=== PATIENT | female | born 1975 | race Caucasian/White ===

== ENCOUNTER → 2024-01-17 | Outpatient (CLI) | payer BC, SELFPAY ==
--- NOTE | 2024-01-17 13:30 | XR_ITS ---
Examination: Breast ultrasound, unilateral, left complete Date and time of exam: January 17, 2024 1347 hours INDICATIONS: Mammogram 11/07/2023 12 mm focal asymmetry 12:00 position left breast Technique: Real-time alejandro scale ultrasonographic imaging performed left breast including all 4 quadrants as well as nipple retroareolar and axillary region. Findings: 1:00 oval mass which may represent glandular tissue 11 x 7 x 10 mm IMPRESSION: BI-RADS Category 3: Probably benign findings One additional 6 month left breast sonogram follow-up is needed to document stability of 1:00 oval mass versus glandular tissue described above
--- NOTE | 2024-01-17 14:00 | XR_ITS ---
Examination: Diagnostic digital mammography, unilateral, left Computer aided detection 3-D breast Tomosynthesis, unilateral Date and time of exam: January 17, 2024 1339 hours INDICATIONS: Mammogram 11/07/2023 focal asymmetry upper left breast, 12 mm focal asymmetry 12:00 position left breast Technique: Nonmagnified MLO, CC views of the left breast have been obtained, reconstructed from 3-D Tomosynthesis images. R2 computer aided detection program utilized for evaluation of suspicious masses and/or abnormal calcifications. 3-D Tomosynthesis images obtained. Findings: The breast is heterogeneously dense, which may obscure small masses Spot compression views demonstrate 26 mm more pronounced focal asymmetry 12:00 position left breast Impression: BI-RADS category 0: Incomplete: Need additional imaging evaluation This patient should return for repeat dedicated left breast sonography with the radiologist in attendance
== END | disposition home or self-care (01) ==
PROVIDERS: PCP Internal Medicine; Referring Provider Internal Medicine; Visit Provider Internal Medicine
DX: R92.8 Other abnormal and inconclusive findings on diagnostic imaging of breast (principal)
CPT/HCPCS: 76641; 77061; 77065; G0279

== ENCOUNTER → 2024-02-01 | Outpatient (CLI) | payer BC, SELFPAY ==
--- NOTE | 2024-02-01 14:00 | XR_ITS ---
Examination: Breast ultrasound, unilateral, left complete Date and time of exam: February 01, 2024 1430 hours INDICATIONS: Left breast sonogram January 17, 2024 1:00 oval mass versus glandular tissue 11 x 7 x 10 mm Technique: Real-time alejandro scale ultrasonographic imaging performed left breast including all 4 quadrants as well as nipple retroareolar and axillary region. Findings: Echogenic dense breast tissue No cystic or solid mass noted IMPRESSION: BI-RADS Category 1: Negative study
== END | disposition home or self-care (01) ==
LOC: SDIM 13:21
PROVIDERS: PCP Internal Medicine; Referring Provider Internal Medicine; Visit Provider Internal Medicine
DX: R92.30 Dense breasts, unspecified (principal)
CPT/HCPCS: 76641

== ENCOUNTER → 2024-11-27 | Outpatient (CLI) | payer BC, SELFPAY ==
--- NOTE | 2024-11-27 11:15 | XR_ITS ---
Examination: Screening digital mammography, bilateral Computer aided detection 3-D breast Tomosynthesis, bilateral Date and time of exam: November 27 2024 1128 hours, compared to mammograms dating to December 22, 2020 Indication: Screening Technique: Nonmagnified MLO, CC views of the breasts to been obtained, reconstructed from 3-D Tomosynthesis images. R2 computer aided detection program utilized for evaluation of suspicious masses and/or abnormal calcifications. 3-D Tomosynthesis images obtained. Findings: The breasts are heterogeneously dense, which may obscure small masses 18 mm focal asymmetry indistinct margins upper outer right breast Benign calcifications Impression: BI-RADS Category 0: Incomplete: Need additional imaging evaluation Recommend follow-up spot tomographic views of 18 mm focal asymmetry indistinct margins upper outer right breast as well as right breast sonography to complete the workup
== END | disposition home or self-care (01) ==
LOC: CDIM 11:23
PROVIDERS: PCP Internal Medicine; Referring Provider Internal Medicine; Visit Provider Internal Medicine
DX: Z12.31 Encounter for screening mammogram for malignant neoplasm of breast (principal); N64.89 Other specified disorders of breast; R92.8 Other abnormal and inconclusive findings on diagnostic imaging of breast
CPT/HCPCS: 77063; 77067